=== PATIENT | male | born 1990 | race African-American/Black ===

== ENCOUNTER 2019-12-21 04:22 | Emergency (ER) | payer SELFPAY ==
[~2019-12-21] VITALS: Ht 182.9 cm; Wt 104.5 kg
[~2019-12-21 04:22] MED LIST: TRIA15CR61 TP
[2019-12-21 04:23] VITALS: BP 155/118
[2019-12-21] MEDS ORDERED: sulfamethoxazole/trimethoprim DS (800/160mg) tablet PO ONE (04:55)
[2019-12-21] MEDS ORDERED: HYDROcodone/acetaminophen 10/325mg tab PO ONE (04:55)
[2019-12-21] MEDS ORDERED: ketorolac trometh inj. 60 MG/2 ML VIAL IM ONE (04:55)
[2019-12-21] MEDS ORDERED: LIDOcaine 1% W/epiNEPHrine 1:100,000 20ml vial SQ ONE (04:55)
[2019-12-21] MEDS ORDERED: SULF1TAB49 PO (05:16)
[2019-12-21] MEDS ORDERED: HYDR-4353 PO (05:16)
== END 2019-12-21 05:40 | disposition home or self-care (01) ==
LOC: ER 04:22
DX: L05.91 Pilonidal cyst without abscess (principal); M54.5 Low back pain; Z72.89 Other problems related to lifestyle; Z79.899 Other long term (current) drug therapy
CPT/HCPCS: 10080; 96372; 99284; J1885

== ENCOUNTER 2020-05-21 13:08 | Emergency (ER) | payer OTHER ==
[~2020-05-21] VITALS: Ht 182.9 cm; Wt 107.7 kg
[2020-05-21] MEDS ORDERED: dexamethasone sod phosphate 10mg/ml inj IV STA (13:14)
[2020-05-21] MEDS ORDERED: SUMAtriptan succ. 6 MG/0.5ml vial SQ ONE (13:15)
[2020-05-21] MEDS ORDERED: metoclopramide 5 mg/ml inj IV ONE (13:15)
[2020-05-21] MEDS ORDERED: ketorolac trometh. 30mg/ml inj. IV ONE (13:15)
[2020-05-21] MEDS ORDERED: normal saline 1000ML IV soln IVB ONE (13:15)
[2020-05-21 13:40] VITALS: BP 139/101
[2020-05-21] MEDS ORDERED: LORazepam 1 MG tablet PO ONE (13:40)
== END 2020-05-21 14:37 | disposition home or self-care (01) ==
LOC: ER 13:08 → EEVIPCON 13:08 → ER 14:37
DX: G43.909 Migraine, unspecified, not intractable, without status migrainosus (principal); Z72.89 Other problems related to lifestyle; Z79.899 Other long term (current) drug therapy
CPT/HCPCS: 96361; 96372; 96374; 96375; 99284; J1100; J1885; J2765; J7030; J3030

== ENCOUNTER 2021-03-25 16:06 | Emergency (ER) | payer BC, OTHER ==
[~2021-03-25] VITALS: Ht 182.9 cm; Wt 102.3 kg
[2021-03-25 16:10] VITALS: BP 146/93
[2021-03-25] MEDS ORDERED: acetaminophen 325mg tablet PO ONE (16:30)
[2021-03-25] MEDS ORDERED: ketorolac trometh. 30mg/ml inj. IV ONE (17:35)
[2021-03-25] MEDS ORDERED: normal saline 1000ML IV soln IVB ONE (17:35)
[2021-03-25 18:47] LABS: BASOPHILS % (AUTO) 0.3 % (0-1); EOSINOPHILS % (AUTO) 0.2 % (0-6); HEMATOCRIT 41.2 % (42.0-52.0); HEMOGLOBIN 14.1 g/dl (14.0-17.9); LYMPHOCYTES # (AUTO) 0.8 X10'3 (1.1-4.8); LYMPHOCYTES % (AUTO) 21.3 % (21-51); MEAN CORPUSCULAR HEMOGLOBIN 27.4 PG (27.0-31.0); MEAN CORPUSCULAR HGB CONC 34.2 g/dL (33.0-36.5); MEAN CORPUSCULAR VOLUME 80.2 FL (78-98); MEAN PLATELET VOLUME 8.2 FL (7.4-10.4); MONOCYTES # (AUTO) 0.5 X10'3 (0-0.9); MONOCYTES % (AUTO) 11.7 % (2-12); NEUTROPHILS # (AUTO) 2.6 X10'3 (1.8-7.7); NEUTROPHILS % (AUTO) 66.5 % (42-75); PLATELET COUNT 188 X10'3 (140-440); RED BLOOD COUNT 5.14 X10'6 (4.70-6.10); RED CELL DISTRIBUTION WIDTH 13.1 % (11.5-14.5)
[2021-03-25 19:03] LABS: ALANINE AMINOTRANSFERASE 56 U/L (12-78); ALBUMIN 4.3 G/DL (3.4-5.0); ALBUMIN/GLOBULIN RATIO 1.2 (1.1-1.5); ALKALINE PHOSPHATASE 109 IU/L (46-116); ANION GAP 13 (8-16); ASPARTATE AMINO TRANSFERASE 26 U/L (10-37); BILIRUBIN,TOTAL 0.5 MG/DL (0.1-1.0); BLOOD UREA NITROGEN 9 MG/DL (7-18); BUN/CREATININE RATIO 9.5 (5.4-32.0); CALCIUM 9.1 MG/DL (8.5-10.1); CHLORIDE 100 MMOL/L (99-107); CREATININE 0.95 MG/DL (0.60-1.10); GLUCOSE 96 MG/DL (70-104); POTASSIUM 3.6 MMOL/L (3.5-5.1); SODIUM 136 MMOL/L (135-145); TOTAL CARBON DIOXIDE 22.6 MMOL/L (24-32); TOTAL PROTEIN 7.8 G/DL (6.4-8.2); eGFR > 90 ML/MIN
== END 2021-03-25 19:41 | disposition home or self-care (01) ==
LOC: ER 16:06 → EEVIPCON 16:06 → ER 19:41
DX: B34.9 Viral infection, unspecified (principal); Z20.822 Contact with and (suspected) exposure to COVID-19; R53.83 Other fatigue; R50.9 Fever, unspecified; R53.1 Weakness; R51.9 Headache, unspecified; Z72.89 Other problems related to lifestyle; Z79.899 Other long term (current) drug therapy
CPT/HCPCS: 36415; 71045; 80053; 85025; 87502; 87503; 87635; 96374; 99284; C9803; J1885; J7030

== ENCOUNTER 2021-03-31 08:25 | Emergency (ER) | payer BC ==
[~2021-03-31] VITALS: Ht 182.9 cm; Wt 98.2 kg
[2021-03-31] MEDS ORDERED: normal saline 1000ml 1,000 ML IV ONE (08:40)
[2021-03-31 09:23] LABS: BASOPHILS % (AUTO) 0.4 % (0-1); EOSINOPHILS % (AUTO) 0.6 % (0-6); HEMATOCRIT 46.2 % (42.0-52.0); HEMOGLOBIN 15.1 g/dl (14.0-17.9); LYMPHOCYTES % (AUTO) 55.4 % (21-51); MEAN CORPUSCULAR HEMOGLOBIN 26.7 PG (27.0-31.0); MEAN CORPUSCULAR HGB CONC 32.7 g/dL (33.0-36.5); MEAN CORPUSCULAR VOLUME 81.5 FL (78-98); MEAN PLATELET VOLUME 8.4 FL (7.4-10.4); MONOCYTES # (AUTO) 0.2 X10'3 (0-0.9); MONOCYTES % (AUTO) 10.4 % (2-12); NEUTROPHILS # (AUTO) 0.6 X10'3 (1.8-7.7); NEUTROPHILS % (AUTO) 33.2 % (42-75); PLATELET COUNT 164 X10'3 (140-440); RED BLOOD COUNT 5.67 X10'6 (4.70-6.10); RED CELL DISTRIBUTION WIDTH 13.2 % (11.5-14.5); WHITE BLOOD COUNT 1.8 X10'3 (4.5-11.0)
[2021-03-31 09:39] LABS: ALBUMIN 4.3 G/DL (3.4-5.0); ANION GAP 12 (8-16); BLOOD UREA NITROGEN 9 MG/DL (7-18); BUN/CREATININE RATIO 8.7 (5.4-32.0); CALCIUM 9.1 MG/DL (8.5-10.1); CHLORIDE 101 MMOL/L (99-107); CREATININE 1.03 MG/DL (0.60-1.10); GLUCOSE 91 MG/DL (70-104); POTASSIUM 4.2 MMOL/L (3.5-5.1); SODIUM 138 MMOL/L (135-145); TOTAL CARBON DIOXIDE 24.8 MMOL/L (24-32); eGFR > 90 ML/MIN
[2021-03-31] MEDS ORDERED: acetaminophen 325mg tablet PO ONE (10:15)
[2021-03-31 10:22] LABS: ELLIPTOCYTES FEW; PLATELET ESTIMATE NORMAL; TOTAL CELLS COUNTED 100
[2021-03-31 10:23] LABS: SMUDGE CELLS 1+
[2021-03-31 12:02] VITALS: BP 140/104
== END 2021-03-31 12:04 | disposition home or self-care (01) ==
LOC: EEVIPCON 08:26 → ER 08:26
DX: U07.1 COVID-19 (principal); R50.9 Fever, unspecified; D70.9 Neutropenia, unspecified; I10 Essential (primary) hypertension; Z91.048 Other nonmedicinal substance allergy status; Z79.899 Other long term (current) drug therapy
CPT/HCPCS: 80048; 83605; 84145; 85007; 85025; 87635; 96360; 96361; 99283; C9803; J7030

== ENCOUNTER 2022-02-19 12:23 | Emergency (ER) | payer BC ==
[~2022-02-19] VITALS: Ht 182.9 cm; Wt 98.0 kg
[2022-02-19] MEDS ORDERED: HYDROcodone/acetaminophen 10/325mg tab PO ONE (13:20)
[2022-02-19] MEDS ORDERED: LIDOcaine 4% (40 mg/ml) topical solution 50ml TP ONE (13:20)
[2022-02-19] MEDS ORDERED: clindamycin 150mg capsule PO ONE (13:20)
[2022-02-19] MEDS ORDERED: CLIN300C54 PO (13:35)
== END 2022-02-19 13:43 | disposition home or self-care (01) ==
LOC: EEVIPCON 12:24 → ER 12:24
DX: K04.7 Periapical abscess without sinus (principal); Z88.5 Allergy status to narcotic agent; Z79.899 Other long term (current) drug therapy; Z91.018 Allergy to other foods; Z79.2 Long term (current) use of antibiotics
CPT/HCPCS: 99284

== ENCOUNTER 2023-05-05 09:24 | Emergency (ER) | payer BC ==
[~2023-05-05] VITALS: Ht 182.9 cm; Wt 104.5 kg
[2023-05-05 09:38] VITALS: BP 150/95; PULSE 80; RESP 17; TEMP 99; O2SAT 98
--- NOTE | 2023-05-05 13:26 | NUR ---
I AGREE WITH THE ASSESSMENT PER Aryan SHEN LVN.
== END 2023-05-05 13:26 | disposition home or self-care (01) ==
LOC: ER 09:25
DX: B34.9 Viral infection, unspecified (principal); Z20.822 Contact with and (suspected) exposure to COVID-19; R51.9 Headache, unspecified; R05.9 Cough, unspecified; Z72.89 Other problems related to lifestyle; Z91.018 Allergy to other foods; Z79.899 Other long term (current) drug therapy
CPT/HCPCS: 36415; 87811; 99283

== ENCOUNTER 2025-01-18 09:07 | Outpatient (CLI) | payer BC ==
[2025-01-18 09:52] LABS: MEAN PLATELET VOLUME 8.5 FL (7.4-10.4); RED CELL DISTRIBUTION WIDTH 13.0 % (11.5-14.5)
[2025-01-18 09:54] LABS: LEUKOCYTE ESTERASE ,URINE NEGATIVE (Neg); NITRITES, URINE NEGATIVE (Neg); OCCULT BLOOD,URINE TRACE-INTACT (Neg)
[2025-01-18 10:10] LABS: UA COLLECTION TYPE NON-SPECIFIED
[2025-01-18 10:11] LABS: SQUAMOUS EPITHELIAL CELL,UR MODERATE /LPF (FEW)
[2025-01-18 10:12] LABS: MUCUS STRANDS FEW /LPF (Neg)
[2025-01-18 10:28] LABS: WBC CLUMPS,URINE FEW /HPF (NEGATIVE)
[2025-01-18 10:30] LABS: HYALINE CASTS 0-3 /LPF (NEGATIVE)
[2025-01-18 10:41] LABS: CHOL/HDL RATIO 3.0 (0.00-4.99); CREATININE 0.96 MG/DL (0.60-1.10); LDL CHOLESTEROL 85 MG/DL (50-100); TOTAL CARBON DIOXIDE 26.6 MMOL/L (24-32); eGFR > 90 ML/MIN
[2025-01-18 10:43] LABS: BASOPHILS % (MANUAL) 1.0 % (0-1); EOSINOPHILS % (MANUAL) 1.0 % (0-6); LYMPHOCYTES % (MANUAL) 54.0 % (21-51); MONOCYTES % (MANUAL) 6.0 % (2-12); NEUTROPHILS % (MANUAL) 38.0 % (42-75); PLATELET ESTIMATE NORMAL
[2025-01-19 11:15] LABS: TESTOSTERONE, SERUM 327 ng/dL (264-916); THYROXINE (T4) 9.3 ug/dL (4.5-12.0)
[2025-01-19 14:26] LABS: FOLATE SERUM(FOLIC) 14.4 ng/mL (>3.0)
== END 2025-01-18 23:59 | disposition home or self-care (01) ==
LOC: LAB 09:07
PROVIDERS: ATTEND Nurse Practitioner Family
DX: Z00.01 Encounter for general adult medical examination with abnormal findings (principal); I10 Essential (primary) hypertension; R53.83 Other fatigue; L30.1 Dyshidrosis [pompholyx]; R03.0 Elevated blood-pressure reading, without diagnosis of hypertension; R68.82 Decreased libido
CPT/HCPCS: 36415; 80053; 80061; 81001; 82607; 82746; 84402; 84403; 84436; 84439; 84443; 85007; 85025; 87088